=== PATIENT | female | born 1995 | race African-American/Black ===

== ENCOUNTER 2017-11-09 14:22 | Emergency (ER) | payer SELFPAY ==
[~2017-11-09] VITALS: Ht 167.6 cm; Wt 65.8 kg
[~2017-11-09 14:22] MED LIST: PRENATAL VITAM1 EACH PO
--- NOTE | 2017-11-09 14:43 | Emergency Room Report ---
History of Present Illness General Chief Complaint: Complications Source: Patient Present Illness HPI 22-year-old female patient presents to ER BIB ambulance complaining of bloody urine and abdominal pain. Patient reports experiencing sharp abdominal pain at 9 AM. Patient reports seeing blood and "other products" in her urine. Patient reports one episode of vomiting during this time. Patient reports taking Zofran for nausa symptoms. Patient states abdominal pain has decreased since that time. Patient reports one previous ; states there was no complications with first . Patient states she is 8 weeks . Patient states she was informed of while being treated for UTI at hospital; reports she is currently taking vitamins provided to her at hospital when she was informed she is . Patient states she currently is still trying to find an OBGYN physician. Patient denies use of medications. Patient denies use of abdominal or pelvic trauma. Patient denies chest pain, SOB, rash. Allergies: Coded Allergies: No Known Allergies (Unverified , 11/09/17) Patient History Past Medical History: see triage record Now: Yes - 8 weeks : 2 Para: 1 Reviewed Nursing Documentation: PMH: Agreed, PSxH: Agreed Nursing Documentation-PMH Past Medical History: No Stated History Review of Systems All Other Systems: negative except mentioned in HPI Physical Exam Vital Signs Date Time Temp Pulse Resp B/P (MAP) Pulse Ox O2 Delivery O2 Flow Rate FiO2 11/09/17 14:15 98.2 76 18 129/78 100 Room Air Sp02 EP Interpretation: reviewed, normal General Appearance: no apparent distress, alert, GCS 15, non-toxic Head: normocephalic, atraumatic Eyes: bilateral eye normal inspection, bilateral eye PERRL ENT: hearing grossly normal, normal pharynx, no angioedema, normal voice Neck: full range of motion, supple/symm/no masses Respiratory: chest non-tender, lungs clear, normal breath sounds, speaking full sentences Cardiovascular #1: regular rate, rhythm, no edema Gastrointestinal: normal bowel sounds, non tender, soft, non-distended, no guarding, no rebound Musculoskeletal: back normal, gait/station normal, normal range of motion, non- tender, calf tenderness Neurologic: alert, oriented x3, responsive, motor strength/tone normal, sensory intact, speech normal Psychiatric: judgement/insight normal, memory normal, mood/affect normal, no suicidal/homicidal ideation Skin: normal color, no rash, warm/dry, well hydrated Medical Decision Making PA Attestation Dr. Kennedy is my supervising Physician whom patient management has been discussed with. Diagnostic Impression: Primary Impression: Vaginal bleeding Additional Impression: Ovarian cyst ER Course Pt. presents to the ED c/o abdominal pain and blood in urine. Ddx considered but are not limited to threatened , spontaneous , UTI, complication, ectopic . Vital signs: are WNL, pt. is afebrile ORDERS: Pelvic US Labs Type and Screen UA HCG Quantitative ED INTERVENTIONS: IV NS Declines medication for pain, nausea, vomiting. ER COURSE: US negative for IUP. UA negative HCG quant and Urine results negative for Patient understands and agrees to treatment plan. Patient is resting comfortably in no acute distress, hemodynamically stable, nontoxic appearing. Discuss results with patient of labs and US with patient. Patient reports understanding of results. Patient instructed to follow up with OBGYN for further treatment and referral. Patient instructed to follow up with primary care provider for further treatment and referral. Patient understands and agrees to treatment plan. DISCHARGE: At this time pt. is stable for d/c to home. Patient instructed to followup with OBGYN in 1- 3 days. Will provide printed patient care instructions, and any necessary prescriptions. Care plan and follow up instructions have been discussed with the patient prior to discharge Following discharge and official [facility] radiology report, patient was contacted by the phone and informed of official results. Patient was instructed again to followup with OBGYN for further evaluation and treatment. Patient reported understanding and agreement to treatment plan. Labs Test 11/09/17 14:45 White Blood Count 6.4 K/UL (4.8-10.8) Red Blood Count 4.36 M/UL (4.20-5.40) Hemoglobin 14.6 G/DL (12.0-16.0) Hematocrit 42.2 % (37.0-47.0) Mean Corpuscular Volume 97 FL (80-99) Mean Corpuscular Hemoglobin 33.5 PG (27.0-31.0) Mean Corpuscular Hemoglobin Concent 34.6 G/DL (32.0-36.0) Red Cell Distribution Width 10.7 % (11.6-14.8) Platelet Count 256 K/UL (150-450) Mean Platelet Volume 6.7 FL (6.5-10.1) Neutrophils (%) (Auto) % (45.0-75.0) Lymphocytes (%) (Auto) % (20.0-45.0) Monocytes (%) (Auto) % (1.0-10.0) Eosinophils (%) (Auto) % (0.0-3.0) Basophils (%) (Auto) % (0.0-2.0) Differential Total Cells Counted 100 Neutrophils % (Manual) 26 % (45-75) Lymphocytes % (Manual) 61 % (20-45) Monocytes % (Manual) 13 % (1-10) Eosinophils % (Manual) 0 % (0-3) Basophils % (Manual) 0 % (0-2) Band Neutrophils 0 % (0-8) Platelet Estimate Adequate Platelet Morphology Normal Macrocytosis 1+ Urine Color Red Urine Appearance Turbid Urine pH 6 (4.5-8.0) Urine Specific [place] 1.010 (1.005-1.035) Urine Protein 3+ (NEGATIVE) Urine Glucose (UA) Negative (NEGATIVE) Urine Ketones Negative (NEGATIVE) Urine Occult Blood 5+ (NEGATIVE) Urine Nitrite Negative (NEGATIVE) Urine Bilirubin Negative (NEGATIVE) Urine Urobilinogen Normal MG/DL (0.0-1.0) Urine Leukocyte Esterase 2+ (NEGATIVE) Urine RBC Tntc /HPF (0 - 2) Urine WBC 0-2 /HPF (0 - 2) Urine Squamous Epithelial Cells Occasional /LPF Urine Bacteria Few /HPF (NONE) Urine HCG, Qualitative Negative Sodium Level 139 MMOL/L (136-145) Potassium Level 3.7 MMOL/L (3.5-5.1) Chloride Level 105 MMOL/L (98-107) Carbon Dioxide Level 24 MMOL/L (21-32) Anion Gap 10 mmol/L (5-15) Blood Urea Nitrogen 10 mg/dL (7-18) Creatinine 0.8 MG/DL (0.55-1.30) Estimat Glomerular Filtration Rate > 60 mL/min (>60) Glucose Level 90 MG/DL (74-106) Calcium Level 9.1 MG/DL (8.5-10.1) Total Bilirubin 0.2 MG/DL (0.2-1.0) Aspartate Amino Transf (AST/SGOT) 12 U/L (15-37) Alanine Aminotransferase (ALT/SGPT) 17 U/L (12-78) Alkaline Phosphatase 60 U/L (46-116) Total Protein 8.0 G/DL (6.4-8.2) Albumin 3.6 G/DL (3.4-5.0) Globulin 4.4 g/dL Albumin/Globulin Ratio 0.8 (1.0-2.7) Lipase 132 U/L (73-393) Human Chorionic Gonadotropin, Quant 1 mIU/mL (1-6) CT/MRI/US Diagnostic Results CT/MRI/US Diagnostic Results : Imaging Test Ordered: Pelvic US Impression No demonstration of an intrauterine . In light of the positive test, ectopic is not excluded. Furthermore there is some evidence of echoes within the free fluid in the cul-de-sac and left adnexal region which suggests the possibility of hemoperitoneum. Correlation with quantitative beta-hCG is recommended. The blood could be on the basis of the 4.2 cm complex cystic right ovarian mass , which is likely a hemorrhagic cyst with retracting internal clot. Follow-up is recommended. Uterine fibroids Last Vital Signs Date Time Temp Pulse Resp B/P (MAP) Pulse Ox O2 Delivery O2 Flow Rate FiO2 11/09/17 14:15 98.2 76 18 129/78 100 Room Air Disposition: Condition: Stable Patient Instructions: Hematuria, Adult Additional Instructions: Followup with OBGYN in 1 -3 days. Take medications as directed. Patient questions asked and answered. ER precautions given, patient instructed to return to ER immediately for any new or worsening of symptoms including but not limited to bleeding, syncope, lightheadedness. Liam Kasper Nov 09, 2017 14:43
[2017-11-09 15:22] LABS: HEMATOCRIT 42.2 % (37.0-47.0); HEMOGLOBIN 14.6 G/DL (12.0-16.0); MEAN CORPUSCULAR VOLUME 97 FL (80-99); PLATELET COUNT 256 K/UL (150-450); RED BLOOD COUNT 4.36 M/UL (4.20-5.40); RED CELL DISTRIBUTION WIDTH 10.7 % (11.6-14.8); WHITE BLOOD COUNT 6.4 K/UL (4.8-10.8)
[2017-11-09 15:31] LABS: ANION GAP 10 mmol/L (5-15); BLOOD UREA NITROGEN 10 mg/dL (7-18); CALCIUM 9.1 MG/DL (8.5-10.1); CARBON DIOXIDE 24 MMOL/L (21-32); CHLORIDE 105 MMOL/L (98-107); CREATININE 0.8 MG/DL (0.55-1.30); POTASSIUM 3.7 MMOL/L (3.5-5.1); SODIUM 139 MMOL/L (136-145)
[2017-11-09 15:35] LABS: APPEARANCE,URINE TURBID; BILIRUBIN, URINE NEGATIVE (NEGATIVE); GLUCOSE, URINE (UA) NEGATIVE (NEGATIVE); KETONES,URINE NEGATIVE (NEGATIVE); LEUKOCYTE ESTERASE ,URINE 2+ (NEGATIVE); NITRITE,URINE NEGATIVE (NEGATIVE); PH,URINE 6 (4.5-8.0); PROTEIN,URINE 3+ (NEGATIVE); UROBILINOGEN,URINE NORMAL MG/DL (0.0-1.0)
[2017-11-09 15:36] LABS: ALANINE AMINOTRANSFERASE 17 U/L (12-78); ALBUMIN 3.6 G/DL (3.4-5.0); ALBUMIN/GLOBULIN RATIO 0.8 (1.0-2.7); ALKALINE PHOSPHATASE 60 U/L (46-116); ASPARTATE AMINO TRANSFERASE 12 U/L (15-37); BILIRUBIN,TOTAL 0.2 MG/DL (0.2-1.0)
[2017-11-09 15:39] LABS: COLOR,URINE RED
[2017-11-09 16:45] VITALS: BP 108/76
--- NOTE | 2017-11-09 17:03 | Diagnostic Imaging Report ---
Indication: Pelvic pain. Hematuria. Vaginal bleeding Technique: Grayscale and duplex Doppler imaging of the pelvis performed utilizing a transabdominal scan and endovaginal scan. Comparison: None Findings: There is no demonstration of an intrauterine . The central endometrial echo complex is slightly heterogeneous measuring 10 to 11 mm in thickness. There are uterine fibroids present. In the right adnexa there is a complex mass measuring 3.4 x 4.3 cm. There is a curvilinear echogenic focus within the mass eccentrically located on one side of the mass. Low level echoes seen throughout. Findings consistent with a hemorrhagic cyst. Follow-up recommended in 6 weeks. There is dopplerable blood flow within the rind of tissue surrounding the complex mass. The left orbit is also seen and appears normal. Adjacent to the left ovary there is slightly heterogeneous region with low-level echoes demonstrated. This is seen in the context of some free fluid which most likely represents. IMPRESSION: No demonstration of an intrauterine . In light of the positive test, ectopic is not excluded. Furthermore there is some evidence of echoes within the free fluid in the cul-de-sac and left adnexal region which suggests the possibility of hemoperitoneum. Correlation with quantitative beta-hCG is recommended. The blood could be on the basis of the 4.2 cm complex cystic right ovarian mass, which is likely a hemorrhagic cyst with retracting internal clot. Follow-up is recommended. Uterine fibroids
== END 2017-11-09 16:45 | disposition home or self-care (01) ==
LOC: EDBD 14:22 → EMR 14:50
DX: O20.9 Hemorrhage in early pregnancy, unspecified (principal); O34.11 Maternal care for benign tumor of corpus uteri, first trimester; Z3A.08 8 weeks gestation of pregnancy; O34.81 Maternal care for other abnormalities of pelvic organs, first trimester; N83.201 Unspecified ovarian cyst, right side; D25.9 Leiomyoma of uterus, unspecified
CPT/HCPCS: 36415; 76801; 80053; 81003; 81025; 83690; 84702; 85007; 85025; 86850; 86900; 86901; 96374; 99284